=== PATIENT | female | born 1945 | race Caucasian/White ===

== ENCOUNTER 2020-06-30 07:40 | Day surgery (SDC) | payer MEDICARE, SELFPAY ==
[2020-06-23 15:39] VITALS: BMI 31.4
--- NOTE | 2020-06-25 07:55 | MHC.SHP ---
Pre-Procedural Eval Section A The patient is an INPATIENT: No The History & Physical has been completed within 30 days and I have reviewed it.: Yes Section B Chief Complaint: Right Eye Cataract Allergies: Allergies Allergy/AdvReac Type Severity Reaction Status Date / Time levofloxacin [From Levaquin] Allergy Muscle Pain Verified 06/23/20 15:33 Penicillins Allergy Rash Verified 06/23/20 15:33 sulfamethoxazole Allergy Rash Verified 06/23/20 15:33 [From Bactrim] trimethoprim [From Bactrim] Allergy Rash Verified 06/23/20 15:33 oxycodone [From Percocet] AdvReac Agitated Verified 06/23/20 15:33 hayfever Allergy Nasal Uncoded 06/23/20 15:33 congestion Plan Diagnosis/Plan: Unchanged I have reviewed the history and physical and performed a pertinent physical examination on my patient. No changes have occurred unless specified.
--- NOTE | 2020-06-27 14:23 | HO.ANESPROP2 ---
Documented by User: Siomara Stacy 06/27/20 14:24 HPI - Anesthesia Eval Consult details Narrative: 75yo F for Right Cataract Multifocal with IOL Insertion No prev cataract on record PCP clearance Pending PAF - eliquis *multiple med allergies* [facility] Past Medical History Medical History Asthma Breast cancer Elevated cholesterol GERD (gastroesophageal reflux disease) Glaucoma HTN (hypertension) On anticoagulant therapy PAF (paroxysmal atrial fibrillation) Surgical History Surgical History History of lumpectomy of right breast Hx of dilation and curettage Hx of right mastectomy Hx of tonsillectomy Social History Social History Are you a primary health care consultant to a significant other at home: No Do you presently have visiting nurse or other home services: No Smoking Status: Never smoker Use of substances other than those prescribed or required for medical reasons: No Have you been hit, kicked, punched, or otherwise hurt by someone within the past year? If so, by whom?: No Advance Directives: No Advance Directives Information Provided: No Advance Directives on File: No Recently lost weight without trying: No Meds Allergies Allergy/AdvReac Type Severity Reaction Status Date / Time levofloxacin [From Levaquin] Allergy Muscle Pain Verified 06/23/20 15:33 lisinopril Allergy Cough Verified 06/26/20 16:04 metoprolol Allergy Wheezing Verified 06/26/20 16:04 Penicillins Allergy Rash Verified 06/23/20 15:33 sulfamethoxazole Allergy Rash Verified 06/23/20 15:33 [From Bactrim] trimethoprim [From Bactrim] Allergy Rash Verified 06/23/20 15:33 oxycodone [From Percocet] AdvReac Agitated Verified 06/23/20 15:33 hayfever Allergy Nasal Uncoded 06/23/20 15:33 congestion Home Medications Medication Instructions Recorded Confirmed Last Taken Type albuterol sulfate 1 puff INHALATION Q4-6H PRN 06/23/20 06/23/20 Unknown History amlodipine 1 tab PO BEDTIME 06/23/20 06/23/20 Unknown History apixaban [Eliquis] 1 tab PO BID 06/23/20 06/23/20 06/30/20 History diclofenac sodium 1 applic TOPICAL QID PRN 06/23/20 06/23/20 Unknown History hydrochlorothiazide 25 mg PO DAILY 06/23/20 06/23/20 Unknown History lactobacillus combination no.4 3,000 mmu cells PO DAILY 06/23/20 06/23/20 Unknown History [Probiotic] latanoprost 1 drp OPHTHALMIC (EYE) BEDTIME 06/23/20 06/23/20 Unknown History letrozole 1 tab PO DAILY 06/23/20 06/23/20 06/30/20 History losartan 1 tab PO DAILY 06/23/20 06/23/20 Unknown History omeprazole 1 cap PO DAILY 06/23/20 06/23/20 06/30/20 History simvastatin 1 tab PO BEDTIME 06/23/20 06/23/20 Unknown History Exam Exam Date and Time: June 27, 2020 1423 Height,Weight and Vital Signs: Height 5 ft 6 in Weight 88.451 kg Assessment and Plan Assessment Anesthesia Assessment: Chart Reviewed Documented by User: Jayesh Jones 06/30/20 09:07 [facility] Past Medical History Medical History Asthma Breast cancer Elevated cholesterol GERD (gastroesophageal reflux disease) Glaucoma HTN (hypertension) On anticoagulant therapy PAF (paroxysmal atrial fibrillation) Surgical History Surgical History History of lumpectomy of right breast Hx of dilation and curettage Hx of right mastectomy Hx of tonsillectomy Social History Social History Are you a primary health care consultant to a significant other at home: No Do you presently have visiting nurse or other home services: No Smoking Status: Never smoker Use of substances other than those prescribed or required for medical reasons: No Have you been hit, kicked, punched, or otherwise hurt by someone within the past year? If so, by whom?: No Advance Directives: No Advance Directives Information Provided: No Advance Directives on File: No Recently lost weight without trying: No Meds Allergies Allergy/AdvReac Type Severity Reaction Status Date / Time levofloxacin [From Levaquin] Allergy Muscle Pain Verified 06/23/20 15:33 lisinopril Allergy Cough Verified 06/26/20 16:04 metoprolol Allergy Wheezing Verified 06/26/20 16:04 Penicillins Allergy Rash Verified 06/23/20 15:33 sulfamethoxazole Allergy Rash Verified 06/23/20 15:33 [From Bactrim] trimethoprim [From Bactrim] Allergy Rash Verified 06/23/20 15:33 oxycodone [From Percocet] AdvReac Agitated Verified 06/23/20 15:33 hayfever Allergy Nasal Uncoded 06/23/20 15:33 congestion Home Medications Medication Instructions Recorded Confirmed Last Taken Type albuterol sulfate 1 puff INHALATION Q4-6H PRN 06/23/20 06/23/20 Unknown History amlodipine 1 tab PO BEDTIME 06/23/20 06/23/20 Unknown History apixaban [Eliquis] 1 tab PO BID 06/23/20 06/23/20 06/30/20 History diclofenac sodium 1 applic TOPICAL QID PRN 06/23/20 06/23/20 Unknown History hydrochlorothiazide 25 mg PO DAILY 06/23/20 06/23/20 Unknown History lactobacillus combination no.4 3,000 mmu cells PO DAILY 06/23/20 06/23/20 Unknown History [Probiotic] latanoprost 1 drp OPHTHALMIC (EYE) BEDTIME 06/23/20 06/23/20 Unknown History letrozole 1 tab PO DAILY 06/23/20 06/23/20 06/30/20 History losartan 1 tab PO DAILY 06/23/20 06/23/20 Unknown History omeprazole 1 cap PO DAILY 06/23/20 06/23/20 06/30/20 History simvastatin 1 tab PO BEDTIME 06/23/20 06/23/20 Unknown History Exam Airway Mallampati Class: II TM Dist: >3cm Neck ROM: Full Heart: irreg irreg S1S2 Lungs: cta b/l Assessment and Plan Assessment Anesthesia Assessment: Anesthesia Plan Discussed, PAT Visit and Chart Reviewed Final Anesthetic Review NPO: Yes ASA Class: III Final Preanesthetic Review: No Changes in Pt Med Stat, Meds/Allgs Chart Reviewed, Consent Obtained/Reviewed and Anes Risks/Benef Reviewed Patient Risk: Intermediate Procedure Risk: Low Assessment/Block/Sedation in SS: Assess/Block/Sedation-SS Anesthetic Plan Anesthetic Plan: MAC: and Agree w/ Assess. and Plan Disposition: Standard PACU
[2020-06-30 08:50] VITALS: BP 146/78; PULSE 52; RESP 18; TEMP 36.1; O2SAT 98
[2020-06-30] MEDS: Tetracaine HCl/PF 0.5% Oph Sol 4 ML DROPS 1 DROP EYE-RIGHT (08:55)
[2020-06-30] MEDS: Phenylephrine HCL 2.5% Oph SoL 2 ML BOTTLE 1 DROP EYE-RIGHT ×3 (08:56→09:00)
[2020-06-30] MEDS: Tropicamide 1 % Ophth Sol 3 ML BTL 1 DROP EYE-RIGHT ×3 (08:56→09:00)
[2020-06-30] MEDS: Lactated Ringers 500 ML 50 ML IV (09:05)
--- NOTE | 2020-06-30 10:13 | HO.PNOPHT ---
Ophthalmology Procedure Procedure Date of Service: 06/30/20 Ophthalmology Viscoelastic: Healon Duet Dual Pack Pro Ophthalmology Lenses: TECNIS [id number] (15) Procedure Notes: PREOPERATIVE DIAGNOSIS: Decreased visual acuity right eye secondary to cataract POSTOPERATIVE DIAGNOSIS: Same PROCEDURE: Right cataract extraction with multifocal intraocular lens insertion SURGEON: Ayden Lord M.D. ANESTHESIA: Topical/MAC ESTIMATED BLOOD LOSS: None COMPLICATIONS: None After obtaining informed consent, the patient was brought to the operating room suite and placed in the supine position. After adequate sedation per anesthesia, topical drops of Tetracaine were given to the right eye. The eye was then prepped and draped in the usual sterile fashion. The operating room microscope was then positioned over the operative eye and a lid speculum placed. A paracentesis was created. Viscoelastic was then instilled into the anterior chamber. A three plane incision was then created temporally, utilizing a 2.85 mm keratome. Capsulotomy forceps were then utilized to create a circular tear capsulotomy. Hydrodissection and hydrodelineation were carried out until adequate mobilization of the nucleus occurred. Phacoemulsification was then utilized to remove the dense central nucleus followed by removal of the cortical material utilizing the automated aspiration irrigation unit. Viscoelastic was instilled into the posterior capsular bag followed by placement of a multifocal posterior chamber intraocular lens without difficulty. The residual Viscoelastic was then removed utilizing the automated IA machine. The wound was checked and found to be watertight. The patient tolerated the procedure well and the lid speculum was removed. Intracameral injection of Vigamox 0.1 mL followed by a subtenon injection of Kenalog-40 0.2 mL were administered. The patient will be seen in the a.m.
[2020-06-30 10:15] VITALS: BP 134/66; PULSE 56; RESP 16; TEMP 36.4; O2SAT 100
== END 2020-06-30 10:56 | disposition home or self-care (01) ==
PROVIDERS: PCP Physician Assistant Medical; Visit Provider Ophthalmology
PROC: (CPT 66984; principal; 2020-06-30 09:30)
DX: H25.11 Age-related nuclear cataract, right eye (principal); H40.1123 Primary open-angle glaucoma, left eye, severe stage; H40.051 Ocular hypertension, right eye; I10 Essential (primary) hypertension; I48.0 Paroxysmal atrial fibrillation; Z79.01 Long term (current) use of anticoagulants; J45.909 Unspecified asthma, uncomplicated; Z79.899 Other long term (current) drug therapy; Z88.0 Allergy status to penicillin; Z88.8 Allergy status to other drugs, medicaments and biological substances
CPT/HCPCS: 66984; J2250; J3010; J3300; V2788

== ENCOUNTER 2020-07-07 10:25 | Day surgery (SDC) | payer MEDICARE, SELFPAY ==
--- NOTE | 2020-07-04 09:13 | P.CONAN_ITS ---
Documented by User: Siomara Kumar 07/04/20 09:25 HPI - Anesthesia Eval Consult details Narrative: 75yo F for Left Cataract Extraction IOL Insertion and Trabeculectomy Right cataract 06/30/20 with MAC: Midaz [facility] Past Medical History Medical History Asthma Breast cancer Elevated cholesterol GERD (gastroesophageal reflux disease) Glaucoma HTN (hypertension) On anticoagulant therapy PAF (paroxysmal atrial fibrillation) Surgical History Surgical History History of lumpectomy of right breast Hx of dilation and curettage Hx of right mastectomy Hx of tonsillectomy Social History Social History Smoking Status: Never smoker Use of substances other than those prescribed or required for medical reasons: No Have you been hit, kicked, punched, or otherwise hurt by someone within the past year? If so, by whom?: No Advance Directives: No Advance Directives Information Provided: Yes Meds Allergies Allergy/AdvReac Type Severity Reaction Status Date / Time levofloxacin [From Levaquin] Allergy Muscle Pain Verified 06/23/20 15:33 lisinopril Allergy Cough Verified 06/26/20 16:04 metoprolol Allergy Wheezing Verified 06/26/20 16:04 Penicillins Allergy Rash Verified 06/23/20 15:33 sulfamethoxazole Allergy Rash Verified 06/23/20 15:33 [From Bactrim] trimethoprim [From Bactrim] Allergy Rash Verified 06/23/20 15:33 oxycodone [From Percocet] AdvReac Agitated Verified 06/23/20 15:33 hayfever Allergy Nasal Uncoded 06/23/20 15:33 congestion Home Medications Medication Instructions Recorded Confirmed Last Taken Type albuterol sulfate 1 puff INHALATION Q4-6H PRN 06/23/20 06/23/20 Unknown History amlodipine 1 tab PO BEDTIME 06/23/20 06/23/20 Unknown History apixaban [Eliquis] 1 tab PO BID 06/23/20 06/23/20 06/30/20 History diclofenac sodium 1 applic TOPICAL QID PRN 06/23/20 06/23/20 Unknown History hydrochlorothiazide 25 mg PO DAILY 06/23/20 06/23/20 Unknown History lactobacillus combination no.4 3,000 mmu cells PO DAILY 06/23/20 06/23/20 Unknown History [Probiotic] latanoprost 1 drp OPHTHALMIC (EYE) BEDTIME 06/23/20 06/23/20 Unknown History letrozole 1 tab PO DAILY 06/23/20 06/23/20 06/30/20 History losartan 1 tab PO DAILY 06/23/20 06/23/20 Unknown History omeprazole 1 cap PO DAILY 06/23/20 06/23/20 06/30/20 History simvastatin 1 tab PO BEDTIME 06/23/20 06/23/20 Unknown History Exam Exam Date and Time: July 04, 2020912 Assessment and Plan Assessment Anesthesia Assessment: Chart Reviewed Documented by User: Lakshmi Prasad 07/07/20 11:11 [facility] Past Medical History Medical History Asthma Breast cancer Elevated cholesterol GERD (gastroesophageal reflux disease) Glaucoma HTN (hypertension) On anticoagulant therapy PAF (paroxysmal atrial fibrillation) Family History Family history of problems with anesthesia: No Surgical History Surgical History History of lumpectomy of right breast Hx of dilation and curettage Hx of right mastectomy Hx of tonsillectomy History of Problems with Anesthesia: No Social History Social History Smoking Status: Never smoker Use of substances other than those prescribed or required for medical reasons: No Have you been hit, kicked, punched, or otherwise hurt by someone within the past year? If so, by whom?: No Advance Directives: No Advance Directives Information Provided: Yes Meds Allergies Allergy/AdvReac Type Severity Reaction Status Date / Time levofloxacin [From Levaquin] Allergy Muscle Pain Verified 06/23/20 15:33 lisinopril Allergy Cough Verified 06/26/20 16:04 metoprolol Allergy Wheezing Verified 06/26/20 16:04 Penicillins Allergy Rash Verified 06/23/20 15:33 sulfamethoxazole Allergy Rash Verified 06/23/20 15:33 [From Bactrim] trimethoprim [From Bactrim] Allergy Rash Verified 06/23/20 15:33 oxycodone [From Percocet] AdvReac Agitated Verified 06/23/20 15:33 hayfever Allergy Nasal Uncoded 06/23/20 15:33 congestion Home Medications Medication Instructions Recorded Confirmed Last Taken Type albuterol sulfate 1 puff INHALATION Q4-6H PRN 06/23/20 06/23/20 Unknown History amlodipine 1 tab PO BEDTIME 06/23/20 06/23/20 Unknown History apixaban [Eliquis] 1 tab PO BID 06/23/20 06/23/20 06/30/20 History diclofenac sodium 1 applic TOPICAL QID PRN 06/23/20 06/23/20 Unknown History hydrochlorothiazide 25 mg PO DAILY 06/23/20 06/23/20 Unknown History lactobacillus combination no.4 3,000 mmu cells PO DAILY 06/23/20 06/23/20 Unknown History [Probiotic] latanoprost 1 drp OPHTHALMIC (EYE) BEDTIME 06/23/20 06/23/20 Unknown History letrozole 1 tab PO DAILY 06/23/20 06/23/20 06/30/20 History losartan 1 tab PO DAILY 06/23/20 06/23/20 Unknown History omeprazole 1 cap PO DAILY 06/23/20 06/23/20 06/30/20 History simvastatin 1 tab PO BEDTIME 06/23/20 06/23/20 Unknown History Exam Height,Weight and Vital Signs: Vital Signs Temp Pulse Resp BP Pulse Ox 07/07/20 10:47 97.6 F 53 16 152/71 H 100 Airway Mallampati Class: II TM Dist: >3cm Neck ROM: Full Heart: RRR Lungs: CTAB Assessment and Plan Assessment Anesthesia Assessment: Anesthesia Plan Discussed and Chart Reviewed Final Anesthetic Review NPO: Yes ASA Class: III Final Preanesthetic Review: No Changes in Pt Med Stat, Meds/Allgs Chart Reviewed, Consent Obtained/Reviewed and Anes Risks/Benef Reviewed Patient Risk: Intermediate Procedure Risk: Low Assessment/Block/Sedation in SS: Assess/Block/Sedation-SS Anesthetic Plan Anesthetic Plan: MAC: Disposition: Standard PACU
--- NOTE | 2020-07-04 10:50 | MHC.SHP ---
Pre-Procedural Eval Section A The patient is an INPATIENT: No The History & Physical has been completed within 30 days and I have reviewed it.: Yes Section B Chief Complaint: Cataract Left Eye, Severe Stage Glaucoma Allergies: Allergies Allergy/AdvReac Type Severity Reaction Status Date / Time levofloxacin [From Levaquin] Allergy Muscle Pain Verified 06/23/20 15:33 lisinopril Allergy Cough Verified 06/26/20 16:04 metoprolol Allergy Wheezing Verified 06/26/20 16:04 Penicillins Allergy Rash Verified 06/23/20 15:33 sulfamethoxazole Allergy Rash Verified 06/23/20 15:33 [From Bactrim] trimethoprim [From Bactrim] Allergy Rash Verified 06/23/20 15:33 oxycodone [From Percocet] AdvReac Agitated Verified 06/23/20 15:33 hayfever Allergy Nasal Uncoded 06/23/20 15:33 congestion Plan Diagnosis/Plan: Unchanged I have reviewed the history and physical and performed a pertinent physical examination on my patient. No changes have occurred unless specified.
[2020-07-07] MEDS: Tetracaine HCl/PF 0.5% Oph Sol 4 ML DROPS 1 DROP EYE-LEFT (10:44)
[2020-07-07 10:47] VITALS: BP 152/71; PULSE 53; RESP 16; TEMP 36.4; O2SAT 100; BMI 31.4
[2020-07-07] MEDS: Tropicamide 1 % Ophth Sol 3 ML BTL 1 DROP EYE-LEFT ×3 (10:50→11:11)
[2020-07-07] MEDS: Phenylephrine HCL 2.5% Oph SoL 2 ML BOTTLE 1 DROP EYE-LEFT ×3 (10:55→11:16)
[2020-07-07] MEDS: Lactated Ringers 500 ML 50 ML IV (11:08)
--- NOTE | 2020-07-07 11:17 | PC.NURSE ---
THIS RN TOLD ALEX PORTILLO RN TO PLEASE TELL DR. LI THAT PATIENT TOOK HER ELIQUIS AND HCTZ THIS AM. ALEX MORENO RN STATES SHE ALREADY TOLD DR. LI REGARDING THE ELIQUIS AND THAT IT WAS OKAY. DR. ROSS SUGGESTED THAT DR. LI BE ALSO ALWARE OF THE HCTZ. Freda PORTILLO RN STATED SHE WOULD LET HIM KNOW.
--- NOTE | 2020-07-07 12:03 | HO.PNOPHT ---
Ophthalmology Procedure Procedure Date of Service: 07/07/20 Ophthalmology Viscoelastic: Healon Duet Dual Pack Pro Ophthalmology Lenses: TECNIS MULTI [id number] (15) Procedure Notes: PREOPERATIVE DIAGNOSIS: Decreased visual acuity left eye secondary to cataract and glaucoma POSTOPERATIVE DIAGNOSIS: Same PROCEDURE: Left cataract extraction with multifocal intraocular lens insertion and trabeculectomy, left eye SURGEON: Ayden Lord M.D. ANESTHESIA: Topical/MAC ESTIMATED BLOOD LOSS: None COMPLICATIONS: None After obtaining informed consent, the patient was brought to the operating room suite and placed in the supine position. After adequate sedation per anesthesia, topical drops of Tetracaine were given to the left eye. The eye was then prepped and draped in the usual sterile fashion. The operating room microscope was then positioned over the left eye and a lid speculum placed. 2% Lidocaine was instilled subconjunctivally. After awaiting 30 seconds, a paracentesis was created superiorly. Hemostasis was then achieved using wet field cautery. Mitomycin .4mg/ml was then placed in the conjunctival pocket and held in place for two minutes. The subconjunctival pocket was then irrigated copiously with 20 mls of BSS. Paracentesis was then created. Viscoelastic was then instilled into the anterior chamber. A crescent blade was then utilized to create a partial thickness sclera wound followed by advancement to clear cornea with the crescent blade. A keratome was then utilized to enter the anterior chamber. Capsulotomy forceps were then utilized to create a continuous circular tear capsulotomy. Hydrodissection and hydrodelineation were carried out until adequate mobilization of the nucleus occurred. Phacoemulsification was utilized to remove the dense central nucleus followed by removal of remnant cortical material utilizing the automated aspiration irrigation unit. Viscoelastic was then instilled into the posterior capsular bag followed by placement of a posterior chamber intraocular lens. Attention was then directed to create a trabeculectomy. A Tiesha punch was then utilized to create the trabeculectomy. The residual Viscoelastic was then removed utilizing the automated IA machine. The egress of aqueous was evaluated and found to be appropriate. The conjunctiva was then closed with a 9-0 vicryl suture. BSS was then instilled into the anterior chamber creating a superior bleb, without obvious leakage. Intracameral injection of Vigamox 0.3%, 0.1 ml and subtenon injection of Kenalog-40 0.2 ml was given followed by an atropine drop. The patient tolerated the procedure well and will be followed up in the a.m.
[2020-07-07 12:04] VITALS: BP 143/71; PULSE 48; RESP 15; TEMP 36.5; O2SAT 98
[2020-07-07] MEDS: Acetaminophen 325 MG TABLET 650 MG PO (12:13)
[2020-07-07 12:15] VITALS: BP 151/69; PULSE 49; RESP 18; O2SAT 98
== END 2020-07-07 12:51 | disposition home or self-care (01) ==
PROVIDERS: PCP Physician Assistant Medical; Visit Provider Ophthalmology
PROC: (CPT 66170; principal; 2020-07-07 11:40)
PROC: (CPT 66984; 2020-07-07 11:40)
DX: H25.12 Age-related nuclear cataract, left eye (principal); H40.1123 Primary open-angle glaucoma, left eye, severe stage; I10 Essential (primary) hypertension; I48.0 Paroxysmal atrial fibrillation; K21.9 Gastro-esophageal reflux disease without esophagitis; Z79.01 Long term (current) use of anticoagulants; Z79.899 Other long term (current) drug therapy; Z88.0 Allergy status to penicillin; Z88.2 Allergy status to sulfonamides; Z88.6 Allergy status to analgesic agent; Z88.8 Allergy status to other drugs, medicaments and biological substances
CPT/HCPCS: 66984; 66170; J2250; J2405; J3010; J3300; J7315; V2788

== ENCOUNTER 2022-06-18 12:32 | Outpatient (REF) | payer MEDICARE, SELFPAY ==
--- NOTE | ~2022-06-18 | XR_ITS ---
EXAMINATION: XR ANKLE, LEFT CLINICAL INFORMATION: Left ankle pain. COMPARISON: None available. TECHNIQUE: AP, lateral, and mortise views of the left ankle. FINDINGS: Acute, minimally displaced fractures of the medial lateral malleoli are seen. The tibiotalar joint space is unremarkable. The tarsal bones are normally aligned. Small plantar calcaneal spur. Moderate soft tissue swelling. XR/XR ankle LT min 3V IMPRESSION: 1. Acute, minimally displaced bimalleolar fractures with moderate soft tissue swelling. 2. Small degenerative plantar calcaneal spur.
== END 2022-06-18 12:33 | disposition home or self-care (01) ==
LOC: HO.HMGCX 12:32
PROVIDERS: PCP Physician Assistant Medical; Visit Provider Physician Assistant
DX: M25.572 Pain in left ankle and joints of left foot (principal)
CPT/HCPCS: 73610

== ENCOUNTER → 2022-06-21 10:02 | Outpatient (BNVA) | payer MEDICARE, SELFPAY | PROVIDERS: PCP Physician Assistant Medical; Visit Provider Physician Assistant | DX: S82.842A Displaced bimalleolar fracture of left lower leg, initial encounter for closed fracture (principal) | CPT/HCPCS: 29515; 99202 ==